=== PATIENT | female | born 1950 | race Caucasian/White ===

== ENCOUNTER 2016-09-15 08:55 | Emergency (ER) | payer MEDICARE, BC ==
--- NOTE | 2016-09-15 09:15 | Emergency Department Record ---
History of Present Illness - General Chief Complaint: Abdominal Pain Stated Complaint: STOMACH PAIN Time Seen by Provider: 09/15/16 09:15 Source: Patient Mode of Arrival: Ambulatory Limitations: No limitations - History of Present Illness Initial Comments: The patient is here due to a one day hx of lower AP. The pain is diffuse and cramping and mainly constant. She did have some loose stools yesterday but there was no blood present. There is no reported fever, chills, dysuria, or any vaginal issues. Eating and drinking sometimes makes the pain worse. The patient has no hx of this and no hx of any abdominal surgeries. MD Complaint: Abdominal pain Onset/Timin -: Days(s) Location: Diffuse Radiation: Back Severity: Moderate Quality: Other Consistency: Constant Improves With: Nothing Worsens With: Eating Associated Symptoms: Nausea - Related Data Patient : No Home Medications Medication Instructions Recorded Confirmed Last Taken Ascorbic Acid [Vitamin C] 1,000 mg PO DAILY 09/15/16 09/15/16 Unknown Cholecalciferol (Vitamin D3) 5,000 unit PO DAILY 09/15/16 09/15/16 Unknown [Vitamin D3] Allergies Allergy/AdvReac Type Severity Reaction Status Date / Time nitrofurantoin Allergy DIZZINESS Verified 04/08/15 12:29 Travel Screening - Travel/Exposure Within Last 30 Days Have you traveled within the last 30 days?: No Review of Systems Constitutional: Denies: Chills, Fever Eyes: Denies: Eye discharge ENT: Denies: Congestion Respiratory: Denies: Cough, Dyspnea Past Medical History - SOCIAL HISTORY Smoking Status: Former smoker Alcohol Use: None Drug Use: None - RESPIRATORY Hx Respiratory Disorders: No - CARDIOVASCULAR Hx Cardio Disorders: No - NEURO Hx Neuro Disorders: No - GI Hx GI Disorders: No - Hx Genitourinary Disorders: Yes Hx UTI: Yes - ENDOCRINE Hx Endocrine Disorders: No - MUSCULOSKELETAL Hx Musculoskeletal Disorders: No - PSYCH Hx Psych Problems: No - HEMATOLOGY/ONCOLOGY Hx Hematology/Oncology Disorders: No Family Medical History Any Significant Family History?: No Physical Exam - General General Appearance: Alert, Oriented x3, Cooperative, No acute distress - Head Head exam: Atraumatic, Normocephalic, Normal inspection - Eye Eye exam: Normal appearance, PERRL - Neck Neck exam: Normal inspection, Full ROM. negative: Tenderness - Respiratory Respiratory exam: Normal lung sounds bilaterally. negative: Respiratory distress - Cardiovascular Cardiovascular Exam: Regular rate, Normal rhythm, Normal heart sounds - GI/Abdominal GI/Abdominal exam: Soft, Tenderness (There is diffuse lower abdominal tenderness.). negative: Distended - Extremities Extremities exam: Normal inspection, Full ROM, Normal capillary refill. negative: Tenderness Course Vital Signs 09/15/16 09:02 Temperature 98.1 F Pulse Rate 85 Respiratory 20 Rate Blood Pressure 138/83 Pulse Ox 97 - Reevaluation(s) Reevaluation #1: The patient is doing much better at this time. She is resting comfortably and is pain free. She denies any new issues. 09/15/16 10:39 Reevaluation #2: The patient is doing very well at this time. She denies any abdominal or back pain presently. On exam her abdomen is very soft and nontender in all 4 quads. She is able to ambulate with no pain or discomfort. I explained the normal results to her and the need for F/U. 09/15/16 12:06 Medical Decision Making - Data Complexity MDM Data: Labs Ordered and/or Reviewed, X-Ray Ordered and/or Reviewed - Lab Data Result diagrams: 09/15/16 09:20 09/15/16 09:20 - Radiology Data Radiology results: Report reviewed (CT: Neg.) Disposition Disposition: Discharge Clinical Impression: Abdominal pain in female Disposition: Home, Self-Care Condition: (1) Good Instructions: Abdominal Pain (ED) Additional Instructions: Please take OTC Prilosec or Pepcid for 2 weeks. Please see your PCP later this week for recheck. Please also follow up with GI in the Specialty clinic as directed. Return to the ER for any increased pain, fever, or vomiting. Referrals: [facility] Special[facility] [Provider Group] Forms: Patient Portal Access Time of Disposition: 12:09
[2016-09-15] MEDS ORDERED: 0.9 % SODIUM CHLORIDE 1,000 ML BAG IV ONE (09:18)
[2016-09-15] MEDS ORDERED: MAGNESIUM HYDROXIDE/AL HYDROX 10.0001 ML, LIDOCAINE VISC 2% 200 MG, PHENOBARB/HYOSCY/AT... PO ONE ×3 (09:23)
[2016-09-15] MEDS ORDERED: ONDANSETRON HCL IV 4 MG/2 ML VIAL IVP ONE (09:23)
[2016-09-15 09:35] LABS: BASO % 0.9 % (0-6); EOS % 0.9 % (0-6); GRAN % 60.5 % (47-80); HEMATOCRIT 42.4 % (35.0-47.0); HEMOGLOBIN 14.1 gm/dl (11.6-16.0); LYMPH % 30.6 % (16-45); MEAN CELL VOLUME 91.8 fl (81-97); MEAN CORPUSCULAR HEMOGLOBIN 30.5 pg (27-33); MEAN CORPUSCULAR HGB CONC 33.3 g/dl (32-36); MEAN PLATELET VOLUME 9.4 fl (7.4-10.4); MONO % 7.1 % (0-9); PLATELET COUNT 243 K/uL (130-400); RED BLOOD COUNT 4.62 M/uL (3.80-5.40); RED CELL DISTRIBUTION WIDTH 12.6 % (11.5-14.5); URINE APPEARANCE CLEAR; URINE BILIRUBIN NEGATIVE (NEGATIVE); URINE BLOOD NEGATIVE (NEGATIVE); URINE COLOR YELLOW; URINE GLUCOSE (UA) NEGATIVE (NEGATIVE); URINE KETONE TRACE (NEGATIVE); URINE LEUKOCYTE ESTERASE NEGATIVE (NEGATIVE); URINE NITRITE NEGATIVE (NEGATIVE); URINE PROTEIN NEGATIVE (NEGATIVE); URINE UROBILINOGEN 0.2 E.U./dL (0.20 - 1.00); WHITE BLOOD COUNT W/O DIFF 4.4 K/uL (4.2-12.2)
[2016-09-15 09:47] LABS: ALBUMIN 4.4 gm/dL (3.5-5.0); ALKALINE PHOSPHATASE 56 U/L (38-126); ALT/SGPT 33 U/L (9-52); ANION GAP 13.7 (7-16); AST/SGOT 24 U/L (14-36); BILIRUBIN,TOTAL 0.85 mg/dL (0.2-1.3); BLOOD UREA NITROGEN 13 mg/dL (7-17); CARBON DIOXIDE 27.3 mmol/L (22-30); CREATININE 0.8 mg/dL (0.52-1.04); EST GLOMERULAR FILTRATION RATE > 60 ml/min; GLUCOSE,RANDOM 97 mg/dL (70-110); LIPASE 190 U/L (23-300); TOTAL PROTEIN 7.1 gm/dL (6.3-8.2)
[2016-09-15] MEDS ORDERED: KETOROLAC 30 MG/ML VIAL IVP ONE (10:15)
== END 2016-09-15 12:25 | disposition home or self-care (01) ==
LOC: ER 08:55
DX: R10.30 Lower abdominal pain, unspecified (principal); R11.0 Nausea
CPT/HCPCS: 99284 ×2; 96374; 96375; 83690; 85025; 80076; 80048; 81003; 74177; Q9967; J1885; J2405; J3490; J7030